=== PATIENT | female | born 1990 | race Hispanic/Latino ===

== ENCOUNTER 2017-03-12 11:39 | Outpatient (CLI) | payer MEDICAID ==
[2017-03-12 12:31] VITALS: BP 109/64
--- NOTE | 2017-03-12 13:45 | Ultrasound Report ---
ULTRASOUND BIOPHYSICAL PROFILE: History: well being Technique: Transabdominal ultrasound with Doppler interrogation. 2 - breathing movements 2 - movements 2 - posture and tone 2 - Qualitative amniotic fluid volume 8 - TOTAL SCORE OF POSSIBLE 8 Heart Rate (bpm) 156
== END 2017-03-12 13:39 | disposition home or self-care (01) ==
LOC: TRG 11:39
PROVIDERS: ATTEND Obstetrics & Gynecology
DX: O47.1 False labor at or after 37 completed weeks of gestation (principal); Z3A.38 38 weeks gestation of pregnancy
CPT/HCPCS: 76815; 76819

== ENCOUNTER 2017-03-19 09:52 | Inpatient (IN) | payer MEDICAID ==
--- NOTE | 2017-03-18 14:48 | History and Physical Report ---
History of Present Illness Date of examination: 03/11/17 Chief complaint: Repeat c/s History of present illness: Past History : 2 Term Births: 1 Living Children: 1 Para: 1 Mult. Births: 0 Prev : 1 Prev. attempt? 0 Aborta: 0 Elect. Ab: 0 Spont. Ab: 0 Ectopics: 0 # 1 Delivery date: 2013 Weeks Gestation: 40 labor: no Delivery type: Delivery location: Tx Infant Sex: Male weight: 6#9 Comments: distress Past Medical History: SVT - last saw cardiology in September in [place], f/u annually, no meds, states now only tachycardia Abnormal Pap Smear - colpo with bx 01/2016 Past Surgical History: cardiac ablasion x 4, last one age 16 Past Medical History Surgery (Non-shortage worker): cardiac ablasion x 4, last one age 16 Abnormal PAP: positive, colpo w/ bx 01/2016 DWIGHT Exposure: negative Infertility: negative Uterine Anomaly: negative Uterine Surgery (not C/S): negative Other Gynecologic Problems: negative Infection History Hx of STD: HPV HIV Risk Eval: low risk Hepatitis B Risk Eval: low risk Personal hx. of genital herpes: no Partner hx. of genital herpes: no Rash, Viral, or Febrile illness since last LMP? no Varicella/Chicken Pox Status: Previous Disease TB Risk: no Genetic History Congenital Heart Defect: Mom: no Dad: no Gavin Disease: Mom: no Dad: no Thalassemia Mom: no Dad: no Neural Tube Defect Mom: no Dad: no Down's Syndrome Mom: no Dad: no Raul-Sachs Mom: no Dad: no Sickle Cell Disease/Trait Mom: no Dad: no Hemophilia Mom: no Dad: no Muscular Dystrophy Mom: no Dad: no Cystic Fibrosis Mom: no Dad: no Christian Chorea Mom: no Dad: no Mental Retardation Mom: no Dad: no Fragile X Mom: no Dad: no Other Genetic/Chromosomal Disorder Mom: no Dad: no Child w/other defect Mom: yes Dad: no Comments: bilateral club feet Enviromental Exposures Xray Exposure: no Medication, drug, or alcohol use since LMP: no Chemical/Other Exposure: no Exposure to Cat Liter: no Hx of Parvovirus (Fifth Disease): no Occupational Exposure to Children: none Current Allergies (reviewed today): No known allergies Past History - Obstetrical History Expected Date of Delivery: 03/23/17 Actual Gestation: 39 Week(s) 2 Day(s) Medications and Allergies Allergies Allergy/AdvReac Type Severity Reaction Status Date / Time banana AdvReac Rash Verified 03/12/17 11:45 Home Medications Medication Instructions Recorded Confirmed Last Taken Type Pnv,Calcium 72/Iron/Folic Acid 1 tab PO DAILY 03/12/17 03/12/17 Unknown History [Pnv Plus Multivit Tab] - Physical Exam Breasts: Positive: deferred Cardiovascular: Regular rate Lungs: Positive: Clear to auscultation Abdomen: Positive: normal appearance Uterus: Positive: enlarged Results All other labs normal. Assessment and Plan - Patient Problems (1) 39 weeks gestation of Status: Acute (2) Maternal care for scar from previous delivery Status: Acute (3) History of supraventricular tachycardia Status: Acute
[~2017-03-19 09:52] MED LIST: ANCEF/STERILE WATER 2 GM/20 ML 2 GM/20 ML SYRINGE IV NR; BICITRA PO ONE; PEPCID IV ONE; PITOCin/NS 20 UNIT/1000ML DRIP 20 UNITS/1,000 ML BAG IV SCH; REGLAN IV ONE
[2017-03-19] MEDS ORDERED: BICITRA ONE (10:26)
[2017-03-19] MEDS ORDERED: PEPCID IV ONE (10:27)
[2017-03-19] MEDS ORDERED: REGLAN ONE (10:27)
[2017-03-19] MEDS: LACTATED RINGERS 1,000 ML IV SCH ×3 (10:30→13:10)
[2017-03-19 10:48] LABS: Basophils % (Auto) 0.2 % (0.0-1.8); Eosinophils % (Auto) 0.6 % (0.0-4.3); Hemoglobin 13.3 gm/dl (10.1-14.3); Mean Corpuscular HGB Conc 34 % (30-34); Mean Corpuscular Hemoglobin 30 pg (28-32); Mean Corpuscular Volume 88 fl (79-97); Platelet Count 182 K/mm3 (140-440); Red Blood Count 4.45 M/mm3 (3.65-5.03); White Blood Count 9.1 K/mm3 (4.5-11.0)
[2017-03-19] MEDS ORDERED: MORPHINE IV PRN ×3 (12:23→16:59)
[2017-03-19] MEDS ORDERED: NARCAN 0.4 MG/1 ML IV PRN ×2 (12:23→16:59)
[2017-03-19] MEDS ORDERED: PHENERGAN PO PRN (12:23)
[2017-03-19] MEDS ORDERED: BENADRYL IV PRN ×2 (12:23→18:25)
[2017-03-19] MEDS ORDERED: PHENERGAN PR PRN (12:23)
[2017-03-19] MEDS ORDERED: ZOFRAN IV PRN (12:23)
--- NOTE | 2017-03-19 12:23 | Anesthesia Consultation ---
Anesthesia Consult and Med Hx Date of service: 03/19/17 - Airway Anesthetic Teeth Evaluation: Good ROM Head & Neck: Adequate Mental/Hyoid Distance: Adequate Mallampati Class: Class II Intubation Access Assessment: Probably Good - Pre-Operative Health Status ASA Pre-Surgery Classification: ASA2 Proposed Anesthetic Plan: Epidural, Spinal - Pulmonary Hx Asthma: No COPD: No Hx Pneumonia: No - Cardiovascular System Hx Hypertension: No - Central Nervous System Hx Seizures: No Hx Psychiatric Problems: Yes (anxiety) - Endocrine Hx Renal Disease: No Hx End Stage Renal Disease: No Hx Hypothyroidism: No Hx Hyperthyroidism: No - Hematic Hx Anemia: No Hx Sickle Cell Disease: No - Other Systems Hx Alcohol Use: No
[2017-03-19] MEDS ORDERED: TORADOL IV PRN (12:24)
--- NOTE | 2017-03-19 12:25 | Anesthesia Day of Surgery ---
Anesthesia Day of Surgery - Day of Surgery Patient Examined: Yes Patient H&P Reviewed: Yes Patient is NPO: Yes
[2017-03-19] MEDS ORDERED: SODIUM CHLORIDE FLUSH SYRINGE 10 ML IV SCH ×2 (13:00→16:59)
[2017-03-19] MEDS ORDERED: MORPHINE ONE (13:32)
[2017-03-19] MEDS ORDERED: NACL 0.9% IR ONE (13:35)
[2017-03-19] MEDS ORDERED: WATER FOR IRRIG STERILE IR ONE (13:35)
[2017-03-19] MEDS ORDERED: NEO SYNEPHRINE/NS Syringe(OR USE) IV ONE ×2 (14:19)
[2017-03-19] MEDS ORDERED: ZOFRAN ONE (14:23)
[2017-03-19] MEDS ORDERED: XYLOCAINE MPF 2% ONE ×2 (14:40)
[2017-03-19] MEDS ORDERED: NACL 0.9% 1000 ML 1,000 ML ONE (14:43)
[2017-03-19] MEDS ORDERED: DEMEROL ONE (14:57)
[2017-03-19] MEDS ORDERED: PITOCin/NS 20 UNIT/1000ML DRIP 20 UNITS/1,000 ML BAG IV SCH (16:59)
[2017-03-19] MEDS ORDERED: TYLENOL PR PRN (16:59)
[2017-03-19] MEDS ORDERED: TUCKS PAD TP PRN (16:59)
[2017-03-19] MEDS ORDERED: MILK OF MAGNESIA PO PRN (16:59)
[2017-03-19] MEDS ORDERED: TYLENOL PO PRN (16:59)
[2017-03-19] MEDS ORDERED: ANCEF/NS 1 GM/50 ML 1 GM/50 ML BAG IV SCH (16:59)
[2017-03-19] MEDS ORDERED: LANSINOH TP PRN (16:59)
[2017-03-19] MEDS ORDERED: MYLICON PO PRN (16:59)
[2017-03-19] MEDS: ceFAZolin 1 GM in NACL 0.9% 20 ML IV SCH (18:29)
--- NOTE | 2017-03-19 19:42 | Operative Report ---
Operative Report Operative Report: Date: 03/19/2017 Preoperative diagnosis: 1. Intrauterine at 39 weeks 2. Previous delivery desires repeat Postoperative diagnosis: 1. Intrauterine at 39 weeks 2. Previous delivery desires repeat Procedure: Low uterine transverse incision for delivery Surgeon: Jade Chambers MD Epidemiologist: Shyann Vallejo Anesthesia: Epidural Anesthesiologist: Benton Hogan M.D. Estimated blood loss: 800 mL Urine out: [] mL Findings: Live born male . Weight 8 lbs. 12 oz. Apgars 8 at 1 minute and 9 at 9 minutes. Grossly normal uterus. tubes and ovaries. Procedure: After risk, benefits, complications, consequences and alternatives for this procedure were discussed with patient and consents were reviewed and signed, she was taken to the OR where epidural anesthesia was placed. She was then placed in the left lateral tilt position, and prepped and draped in the usual sterile fashion. Timeout was performed, and an appropriate level of anesthesia was noted, a Pfannenstiel incision was made and extended to the fascia which was incised and extended in the lateral directions. The overlying fascia was sharply dissected away from the underlying rectus muscles in the superior and inferior directions. The midline was entered bluntly. The vesicouterine fold was incised and with blunt dissection the bladder flap was created. A transverse incision was made in the lower uterine segment and extended in superiolateral direction with finger fractionation. Clear fluid was noted. The infant was delivered from cephalic position. Mouth and nose were bulb suctioned. Spontaneous cry and excellent tone were noted. Cord was doubly clamped and cut. The infant was given to /resuscitation team present. The placenta was manually extracted. The uterus was then exteriorized and cleared of any further products of conception or placental tissue. The incision was reapproximated using 0 Vicryl in a running interlocking stitch. Grossly normal uterus, tubes and ovaries were noted. Once hemostasis was noted, the uterus was allowed back into the pelvic cavity. The pelvis was irrigated with warm normal saline. Again hemostasis was noted . Tisseel applied for further hemostasis. Interceed was then placed to prevent adhesions. Then attention was turned to the rectus muscles. Once hemostasis was noted, the fascia was reapproximated using 0 Vicryl and some running stitch. Once hemostasis was noted skin incision was reapproximated using 4-0 Vicryl on a Pérez needle in a subcuticular manner. Counts were correct 3. Patient tolerated procedure well state recovery room in stable condition.
[2017-03-19] MEDS: D5LR 1,000 ML IV SCH (20:07)
[2017-03-20 01:32] LABS: Hematocrit 34.6 % (30.3-42.9); Hemoglobin 11.5 gm/dl (10.1-14.3)
[2017-03-20] MEDS: D5LR 1,000 ML IV SCH (02:09)
[2017-03-20] MEDS: ceFAZolin 1 GM in NACL 0.9% 20 ML IV SCH (02:10)
[2017-03-20] MEDS: NORCO 5/325 PO PRN ×3 (02:56→22:35)
[2017-03-20] MEDS ORDERED: BOOSTRIX IM ONE (06:00)
--- NOTE | 2017-03-20 07:06 | Progress Note ---
Assessment and Plan - Patient Problems (1) delivery delivered Onset Date: ~03/19/17 Current Visit: Yes Status: Acute Plan to address problem: pt appears very anxious and jumpy. States she is just sleepy. VSS FF below umb Lochia scanr Dressing D&I to be removed this AM H&H drop r/t blood loss from surgery No s/sx of anemia noted. Doing well s/p repeat c/s P: continue pathway Advance diet and activity as tolerated. Subjective - Subjective Date of service: 03/20/17 (pt sleeping No c/o voiced) Principal diagnosis: Day # 1 repeat section Patient reports: appetite normal (will advance as tolerated today), voiding normally, pain well controlled, ambulating normally : doing well Objective - Vital Signs Latest vital signs: Vital Signs Temp Pulse Resp BP BP Pulse Ox 03/20/17 05:38 98.1 F 97 H 20 106/58 93 03/20/17 02:56 18 03/20/17 01:37 98.2 F 20 111/70 03/19/17 21:32 18 03/19/17 21:05 100.4 F H 123 H 22 117/68 96 03/19/17 16:41 97.7 F 97 H 18 122/77 03/19/17 15:55 98.1 F 03/19/17 15:51 97 H 17 119/60 99 03/19/17 15:50 98.1 F 87 22 119/60 100 03/19/17 15:45 91 H 27 H 115/56 99 03/19/17 15:40 94 H 33 H 112/49 99 03/19/17 15:35 100 H 12 110/55 99 03/19/17 15:30 108 H 16 114/57 98 03/19/17 15:25 103 H 37 H 111/62 98 03/19/17 15:20 98 H 15 112/54 99 03/19/17 15:15 100 H 29 H 105/52 99 03/19/17 15:10 95 H 19 115/53 97 03/19/17 15:05 96 H 21 112/59 96 03/19/17 15:00 99 H 21 113/57 97 03/19/17 14:56 113 H 14 112/53 99 03/19/17 14:53 98.0 F 103 H 16 112/53 99 03/19/17 12:59 101 H 125/71 03/19/17 12:44 107 H 120/68 03/19/17 12:31 100 H 121/72 03/19/17 12:15 118 H 119/72 03/19/17 11:59 106 H 116/71 03/19/17 11:46 107 H 120/72 03/19/17 11:30 108 H 117/67 03/19/17 11:15 109 H 138/70 03/19/17 10:41 109 H 122/73 Intake and Output 03/19/17 03/20/17 03/20/17 22:59 06:59 14:59 Intake Total 980 874.167 Output Total 1000 1500 Balance -20 -625.833 Intake: IV 500 754.167 D5lr 1,000 ml @ 125 mls/ 754.167 hr IV DIRECT BIANKA Rx#: [id number] Oral 240 Intake, Free Water 240 120 Output: Urine 1000 1500 Indwelling Catheter 900 900 Void 600 Other: Total, Intake Amount 240 Total, Output Amount 900 500 - Exam Breasts: Present: normal Lungs: Present: Normal air movement Abdomen: Present: normal appearance, soft, normal bowel sounds Uterus: Present: normal, fundal height below umbilicus Extremities: Present: normal Deep Tendon Reflex Grade: Normal +2 Incision: Present: normal, dry, intact, dressed (to be removed this AM) - Labs Labs: Abnormal lab results 03/19/17 Range/Units 10:38 Seg Neutrophils % 75.5 H (40.0-70.0) %
--- NOTE | 2017-03-20 08:43 | Progress Note ---
Subjective Date of service: 03/20/17 Principal diagnosis: Day # 1 repeat section Interval history: 1st POD after Patient is in the bed, comfortable. Pain is well controlled with pain meds. Ambulated well. No residual neurological deficit. No anesthesia complications Objective - Constitutional Vitals: Vital Signs - 12hr 03/19/17 03/19/17 03/20/17 21:05 21:32 01:37 Temperature 100.4 F H 98.2 F Pulse Rate 123 H Respiratory 22 18 20 Rate Blood Pressure 117/68 111/70 O2 Sat by Pulse 96 Oximetry 03/20/17 03/20/17 02:56 05:38 Temperature 98.1 F Pulse Rate 97 H Respiratory 18 20 Rate Blood Pressure 106/58 O2 Sat by Pulse 93 Oximetry - Labs CBC & Chem 7: 03/20/17 01:15 Labs: Abnormal lab results 03/19/17 Range/Units 10:38 Seg Neutrophils % 75.5 H (40.0-70.0) %
[2017-03-20] MEDS: MOTRIN PO PRN ×2 (08:50→18:52)
[2017-03-20] MEDS: PRENATAL VITAMIN PO SCH (09:51)
[2017-03-21] MEDS: MOTRIN PO PRN (04:28)
[2017-03-21] MEDS: NORCO 5/325 PO PRN (04:28)
[2017-03-21] MEDS ORDERED: BOOSTRIX IM ONE (06:00)
--- NOTE | 2017-03-21 08:14 | Discharge Summary ---
Providers - Providers Date of Admission: 03/19/17 09:52 Date of discharge: 03/21/17 (pt desires d/c) Attending physician: BETO MOLINA 03/19/17 16:59 Consult to Safety And Health Consultant [CONS] Routine Reason For Exam: Primary care physician: BETO MOLINA Hospitalization Delivery: Procedure: repeat low transverse Episiotomy: none Laceration: none Incision: normal, dry, intact Other procedures: none complications: none Discharge diagnosis: IUP at term delivered baby: male Hospital course: uncomplicated repeat section Pt A&O Breast feeding @ time of rounds. VSS FF below umb Lochia small Incision D &I H&H stable No evidence of anemia Doing well s/p c/s P: d/c today with instructions RX provided. RTO 1 week for postop care and circ. Condition at discharge: Good Disposition: DC-01 TO HOME OR SELFCARE - Discharge Diagnoses (1) delivery delivered Status: Acute Comment: rto 1 week post care Plan - Discharge Medications Prescriptions: Ibuprofen [Motrin 800 MG tab] 800 mg PO TID PRN #30 tablet PRN Reason: Pain Lidocain2.5%/Prilocai2.5% [Emla] 5 gm TP ONCE #1 tube oxyCODONE /ACETAMINOPHEN [Percocet 5/325 mg] 1 - 2 tab PO Q4HR PRN #30 tablet PRN Reason: Pain - Provider Discharge Summary Activity: routine, no sex for 6 weeks, no heavy lifting 4 weeks, no strenuous exercise Diet: routine Instructions: routine Additional instructions: [] Smoking cessation referral if applicable(refer to patient education folder for contact #) [] Refer to [facility] Booklet Call your doctor immediately for: * Fever > 100.5 * Heavy vaginal bleeding ( >1 pad per hour) * Severe persistent headache * Shortness of breath * Reddened, hot, painful area to leg or breast * Drainage or odor from incision. * Keep incision clean and dry at all times and follow doctor's instructions regarding bathing/showering - Follow up plan Follow up: BETO MOLINA MD [Primary Care Provider] - 7 Days (Congratulations! Please call [phone] to schedule your postoperative visit in 1 week. Take medication as prescribed. Call to schedule your son's circumcision in 1 week. Bring the EMLA cream with you to his visit. Call with any concerns.)
[2017-03-21] MEDS: PRENATAL VITAMIN PO SCH (10:01)
[2017-03-21 13:11] VITALS: BP 125/73
== END 2017-03-21 15:30 | disposition home or self-care (01) | DRG 766 ==
LOC: APU 09:52 → OB 17:04
PROVIDERS: ADMIT Obstetrics & Gynecology; ATTEND Obstetrics & Gynecology
PROC: 10D00Z1 Extraction of Products of Conception, Low, Open Approach (ICD-10-PCS; principal; 2017-03-19)
PROC: 3E0234Z Introduction of Serum, Toxoid and Vaccine into Muscle, Percutaneous Approach (ICD-10-PCS; 2017-03-20)
DX: O34.211 Maternal care for low transverse scar from previous cesarean delivery (principal); Z3A.39 39 weeks gestation of pregnancy; F41.9 Anxiety disorder, unspecified; O99.344 Other mental disorders complicating childbirth; Z37.0 Single live birth; Z23 Encounter for immunization; Z91.018 Allergy to other foods
CPT/HCPCS: 36415; 85014; 85018; 85025; 86592; 86850; 86900; 86901; 90471; 90715; 99211; C1765; G0463; J0690; J1200; J2175; J2270; J2370; J2405; J2590; J2765; J7030; J7120; J7121